=== PATIENT | male | born 1985 | race Caucasian/White ===

== ENCOUNTER 2017-05-01 05:53 | Emergency (ER) | payer OTHER ==
[~2017-05-01] VITALS: Ht 175.3 cm; Wt 105.8 kg
[~2017-05-01 05:53] MED LIST: CLEOCIN300 MG PO; CLINDAMYCIN HC300 MG PO; CONZIP100 MG PO; METHADOSE40 MG PO; MOTRIN800 MG PO; NAPROXEN500 MG PO; TYLENOL WITH C1 EACH PO
[2017-05-01 05:55] VITALS: BP 132/84
[2017-05-01] MEDS ORDERED: IBUPROFEN600 MG PO (06:45)
[2017-05-01] MEDS ORDERED: CLEOCIN300 MG PO (06:45)
== END 2017-05-01 07:18 | disposition home or self-care (01) ==
LOC: EME 05:53
DX: K04.7 Periapical abscess without sinus (principal); K02.9 Dental caries, unspecified; F17.200 Nicotine dependence, unspecified, uncomplicated
CPT/HCPCS: 99281; 99284